=== PATIENT | male | born 1965 | race Caucasian/White ===

== ENCOUNTER 2017-11-21 12:36 | Inpatient (IN) | payer MEDICAID ==
--- NOTE | 2017-11-21 14:02 | GHP ---
[f rep st] HISTORY AND PHYSICAL Amended report DATE OF ADMISSION: 11/21/2017 CHIEF COMPLAINT: Exposed bone, right 2nd toe. HISTORY OF PRESENT ILLNESS: This is a 52-year-old male with history of type 1 diabetes. He presents today with a right 2nd toe wound that has been ongoing for 2 weeks now. States that he has been applying Neosporin daily to it. Reports that initially he had nicked his toe. States that there has been no pain with the wound. No fevers, chills, nausea or vomiting. States that he has previously had a 2nd toe amputation on his left foot. Towards the end of assessment and exam, patient started feeling "off" and not feeling well. PAST MEDICAL HISTORY: Includes type 1 diabetes, left 2nd toe, bipolar disorder , GERD, essential tremor, chronic kidney disease. MEDICATIONS: Include a multivitamin, levothyroxine, omeprazole, Wellbutrin, simvastatin, Depakote, baby aspirin, Abilify, propranolol, Adderall, iron, and vitamin B. SOCIAL HISTORY: Does not smoke. Last drink was on . Does not drink regularly. Does not use any illicit drugs. Lives at home with girlfriend , a cat and 4 birds, and works in IT. FAMILY HISTORY: The patient does not know anything about his biological mom and only knows that his dad with Parkinson's. REVIEW OF SYSTEMS: A 10-point review of systems was obtained and negative other than HPI above. PHYSICAL EXAM: GENERAL: The patient is overweight, and appears to not be feeling well at the end of the exam. HEENT: Normocephalic no gross hearing deficits mucous membranes moist pupils equal and round Nonicteric sclerae. LUNGS: Good effort, clear to auscultation bilaterally. CARDIAC: S1, S2 auscultated. No murmur or gallops. Slight edema right foot. NEUROLOGIC: Alert and oriented. Good historian. INTEGUMENTARY: Right 2nd toe shows disarticulation. Slight erythema on the metatarsal area extending to the dorsum of his foot. Right 2nd toe was wrapped in Kerlix and erythema location was outlined. IMPRESSION and PLAN: This is a 52-year-old man with history of type 1 diabetes , who arrived to clinic today with right 2nd toe disarticulation. Patient began to feel "off" and not right towards the end of examination. Patient is being admitted to the hospital today for IV antibiotics and planned right 2nd toe amputation tomorrow by Dr. De La Cruz. Risks discussed with the patient which include infection, bleeding, swelling, altered sensation, scar, need for additional procedures, and wound dehiscence. Benefits include feeling better after recovery and wound healing. Will continue to follow patient while inpatient in the hospital. /[id number]/MODL Nadiya acc#, 11/28/17, ramya POWELL
[2017-11-21] MEDS ORDERED: diphenhydrAMINE 25 MG CAP PO PRN (14:03)
[2017-11-21] MEDS ORDERED: ONDANSETRON DISINTEGRATING 4 MG TAB PO PRN (14:04)
[2017-11-21] MEDS ORDERED: ONDANSETRON 4 MG/2 ML VIAL IVP PRN (14:04)
[2017-11-21] MEDS ORDERED: AMPICILLIN/SULBACTAM 3 GM VIAL IV SCH (14:15)
[2017-11-21] MEDS ORDERED: D50W 25 GM/50 ML VIAL IVP PRN (16:52)
[2017-11-21] MEDS: AMPICILLIN/SULBACTAM 3 GM VIAL IV SCH ×2 (16:55→22:34)
[2017-11-21] MEDS ORDERED: INSULIN LISPRO 100 UNIT/ML SC SCH ×2 (18:15→18:30)
[2017-11-21] MEDS: [UNRECOGNIZED DRUG - OTHER] SC SCH (19:48)
[2017-11-21] MEDS: INSULIN HUMALOG SC SCH (19:48)
[2017-11-21] MEDS: DIVALPROEX ER 500 MG TAB PO SCH (20:13)
[2017-11-21] MEDS: ATORVASTATIN CALCIUM 10 MG TAB PO SCH (20:13)
[2017-11-21] MEDS: buPROPion SR 150 MG TAB PO SCH (20:13)
[2017-11-21] MEDS: INSULIN GLARGINE 100 UNITS/ML UNIT SC SCH (20:14)
[2017-11-21] MEDS ORDERED: INSULIN DETEMIR 60 UNIT SQ SCH (21:00)
[2017-11-22] MEDS: AMPICILLIN/SULBACTAM 3 GM VIAL IV SCH ×4 (04:24→22:16)
[2017-11-22 05:15] LABS: PLATELET COUNT 228 10^3/uL (150-400)
--- NOTE | 2017-11-22 06:25 | PDANEPAE ---
ANE Past Medical History - Cardiovascular History Hx Hypertension: Yes Hx Arrhythmias: No Hx Chest Pain: No Hx Coronary Artery / Peripheral Vascular Disease: No Hx CHF / Valvular Disease: No Hx Palpitations: No Cardiovascular History Comment: BORDERLINE HTN- PCP MONITORS IT - Pulmonary History Hx COPD: No Hx Asthma/Reactive Airway Disease: No Hx Recent Upper Respiratory Infection: No Hx Oxygen in Use at Home: No Hx Sleep Apnea: No Pulmonary History Comment: RYANN TRIGGERS - Neurologic History Hx Cerebrovascular Accident: No Hx Seizures: No Hx Dementia: No Neurologic History Comment: peripheral neuropathy - Endocrine History Hx Diabetes: Yes Hypothyroid: Yes Hyperthyroid: No Obesity: mild Endocrine History Comment: TYPE 1 x 35 years - Renal History Hx Renal Disorders: Yes Renal History Comment: INCREASE IN PROTEIN POSSIBLY TO ABX - Liver History Hx Hepatic Disorders: No - Neurological & Psychiatric Hx Hx Neurological and Psychiatric Disorders: Yes Neurological / Psychiatric History Comment: DEPRESSION. BIPOLAR. ANXIETY OCC - Cancer History Hx Cancer: No - Congenital Disorder History Hx Congenital Disorders: No - GI History GERD: severe Hx Gastrointestinal Disorders: Yes Gastrointestinal History Comment: REFLUX - Other Health History Other Health History: NONE - Chronic Pain History Chronic Pain: No - Surgical History Prior Surgeries: LEFT FOOT I&D WITH [facility] 04/17/16. I&D WITH CANDELARIO . APPY 10/2013 ANE Review of Systems Review of Systems: ANE Patient History - Allergies Allergies/Adverse Reactions: No Known Allergies Allergy (Verified 05/31/16 15:11) - Home Medications Home Medications: Aspirin [Aspirin 81mg (*)] 81 mg PO DAILY 09/16/15 [Last Taken 11/21/17] Divalproex ER [Depakote ER 500 MG (*)] 500 mg PO BID 09/16/15 [Last Taken ] Multivitamins [Multivitamin (*)] 1 each PO DAILY 09/16/15 [Last Taken 11/21/17] Simvastatin [Zocor] 20 mg PO HS 09/16/15 [Last Taken 11/20/17] Ferrous Sulfate [Ferrous Sulf 325 MG (*)] 325 mg PO DAILY 05/31/16 [Last Taken 11/21/17] Lisinopril [Zestril 10 mg (*)] 10 mg PO DAILY 05/31/16 [Last Taken 11/21/17] Omeprazole [Prilosec 20 mg] 20 mg PO DAILY 05/31/16 [Last Taken 11/21/17] buPROPion SR [Wellbutrin 150mg SR (*)] 150 mg PO BID 05/31/16 [Last Taken ] Amphet Asp and D/Amphet [Adderall 10 MG (*)] 15 mg PO BID@09,13 11/21/17 [Last Taken 11/21/17 09:00] Insulin Detemir [Levemir] 60 unit SQ BID 11/21/17 [Last Taken 11/21/17] Insulin Lispro [Humalog Kwikpen U-100] 0 - 20 unit SQ TIDMEAL 11/21/17 [Last Taken 11/21/17 14 UNITS] Levothyroxine [Synthroid 25 mcg (*)] 25 mcg PO DAILY06 11/21/17 [Last Taken 12/05] Propranolol HCl [Inderal 10mg (*)] 10 mg PO DAILY 11/21/17 [Last Taken 11/21/17] - Smoking Hx Smoking Status: Never smoked - Family Anes Hx Family Hx Anesthesia Complications: ADOPTED- UNKNOWN ANE Labs/Vital Signs - Labs Result Diagrams: 11/24/17 13:00 11/24/17 13:00 ANE Physical Exam - Airway Neck exam: FROM Mouth exam: normal dental/mouth exam - Pulmonary Pulmonary: clear to auscultation - Cardiovascular Cardiovascular: regular rate and rhythym - ASA Status ASA Status: III ANE Anesthesia Plan Anesthesia Plan: GA with mask, MAC (IVGA/MAC procedure/risks/benefits discussed. )
[2017-11-22] MEDS ORDERED: BUPIVACAINE 0.5% 30 ML SDV ONE (07:00)
[2017-11-22] MEDS ORDERED: MIDAZOLAM 2 MG/2 ML VIAL IVP ONE (07:06)
--- NOTE | 2017-11-22 07:07 | PDHPUP ---
History & Physical Update H&P update statement: This history and physical update is based on an assessment of the patient which was completed after admission or registration (within 24 hours), but prior to the surgery/procedure. H&P update: H&P reviewed & patient examined, no change in patient's condition since H&P completed
[2017-11-22] MEDS ORDERED: PROPOFOL 200 MG/20 ML VIAL ONE ×2 (07:13→07:48)
[2017-11-22] MEDS ORDERED: fentaNYL 100 MCG/2 ML INJ ONE (07:13)
[2017-11-22] MEDS ORDERED: LIDOCAINE 1% 300 MG/30 ML SDV ONE (07:21)
[2017-11-22] MEDS ORDERED: RANITIDINE 50 MG/2 ML VIAL ONE (07:29)
[2017-11-22] MEDS ORDERED: fentaNYL 100 MCG/2 ML INJ IVP PRN (07:57)
[2017-11-22] MEDS ORDERED: NALOXONE HCL 0.4 MG/ML INJ IVP PRN ×2 (07:57→08:11)
[2017-11-22] MEDS ORDERED: BACITRACIN ZINC 14.2 GM OINTTUBE TP ONE (08:08)
--- NOTE | 2017-11-22 08:20 | POSTOPPROG ---
Post Op Note Date of Operation: 11/22/17 Surgeon: Felecia De La Cruz Anesthesiologist: alfredo Anesthesia: IV Sedation Pre-op Diagnosis: osteomylitis 2nd toe r Post-op Diagnosis: same Indication: 52 yo with cellulitus and bone exposed r second toe Procedure: amputate r 2nd toe and met head Findings: eroded bone on phaylnx Inf/Abcess present in the surg proc area at time of surgery?: Yes Depth: Deep Incisional (Fascial) EBL: Minimal Specimen(s): path and micro
--- NOTE | 2017-11-22 09:37 | POSTANESTH ---
Post Anesthetic Evaluation Cardiovascular Status: Similar to Pre-Op Cond Respiratory Status: Normal, Stable Level of Consciousness/Mental Status: Can Participate in Eval Pain Control: Adequate, Prn Tx Ordered Nausea/Vomiting Control: Adequate, Prn Tx Ordered Complications Possibly Related to Anesthesia: None Noted
--- NOTE | 2017-11-22 09:41 | PDANEPAE ---
ANE History of Present Illness amputation of second toe, R foot . ANE Past Medical History - Cardiovascular History Hx Hypertension: Yes Hx Arrhythmias: No Hx Chest Pain: No Hx Coronary Artery / Peripheral Vascular Disease: No Hx CHF / Valvular Disease: No Hx Palpitations: No Cardiovascular History Comment: BORDERLINE HTN- PCP MONITORS IT - Pulmonary History Hx COPD: No Hx Asthma/Reactive Airway Disease: No Hx Recent Upper Respiratory Infection: No Hx Oxygen in Use at Home: No Hx Sleep Apnea: No Sleep Apnea Screening Result - Last Documented: Negative Pulmonary History Comment: RYANN TRIGGERS - Neurologic History Hx Cerebrovascular Accident: No Hx Seizures: No Hx Dementia: No Neurologic History Comment: peripheral neuropathy - Endocrine History Hx Diabetes: Yes Hypothyroid: No Hyperthyroid: No Obesity: mild Endocrine History Comment: TYPE 1 - Renal History Hx Renal Disorders: Yes Renal History Comment: INCREASE IN PROTEIN POSSIBLY TO ABX - Liver History Hx Hepatic Disorders: No - Neurological & Psychiatric Hx Hx Neurological and Psychiatric Disorders: Yes Neurological / Psychiatric History Comment: DEPRESSION. BIPOLAR. ANXIETY OCC - Cancer History Hx Cancer: No - Congenital Disorder History Hx Congenital Disorders: No - GI History GERD: severe Hx Gastrointestinal Disorders: Yes Gastrointestinal History Comment: REFLUX - Other Health History Other Health History: NONE - Chronic Pain History Chronic Pain: No - Surgical History Prior Surgeries: LEFT FOOT I&D WITH [facility] 04/17/16. I&D WITH [facility]DEL[facility]IO . APPY 10/2013 ANE Review of Systems Review of Systems: - Exercise capacity METS (RN): 4 METS ANE Patient History - Allergies Allergies/Adverse Reactions: No Known Allergies Allergy (Verified 05/31/16 15:11) - Home Medications Home Medications: Aspirin [Aspirin 81mg (*)] 81 mg PO DAILY 09/16/15 [Last Taken 11/21/17] Divalproex ER [Depakote ER 500 MG (*)] 500 mg PO BID 09/16/15 [Last Taken ] Multivitamins [Multivitamin (*)] 1 each PO DAILY 09/16/15 [Last Taken 11/21/17] Simvastatin [Zocor] 20 mg PO HS 09/16/15 [Last Taken 11/20/17] Ferrous Sulfate [Ferrous Sulf 325 MG (*)] 325 mg PO DAILY 05/31/16 [Last Taken 11/21/17] Lisinopril [Zestril 10 mg (*)] 10 mg PO DAILY 05/31/16 [Last Taken 11/21/17] Omeprazole [Prilosec 20 mg] 20 mg PO DAILY 05/31/16 [Last Taken 11/21/17] buPROPion SR [Wellbutrin 150mg SR (*)] 150 mg PO BID 05/31/16 [Last Taken ] Amphet Asp and D/Amphet [Adderall 10 MG (*)] 15 mg PO BID@09,13 11/21/17 [Last Taken 11/21/17 09:00] Insulin Detemir [Levemir] 60 unit SQ BID 11/21/17 [Last Taken 11/21/17] Insulin Lispro [Humalog] 0 - 20 unit SQ TIDMEAL 11/21/17 [Last Taken 11/21/17 14 UNITS] Levothyroxine [Synthroid 25 mcg (*)] 25 mcg PO DAILY06 11/21/17 [Last Taken 12/05] Propranolol HCl [Inderal 10mg (*)] 10 mg PO DAILY 11/21/17 [Last Taken 11/21/17] - NPO status NPO Since - Liquids (Date): 11/21/17 NPO Since - Liquids (Time): 23:55 NPO Since - Solids (Date): 11/21/17 NPO Since - Solids (Time): 23:55 - Smoking Hx Smoking Status: Never smoked - Family Anes Hx Family Hx Anesthesia Complications: ADOPTED- UNKNOWN ANE Labs/Vital Signs - Labs Result Diagrams: 11/22/17 04:21 11/22/17 04:21 - Vital Signs Blood Pressure: 110/73 Heart Rate: 84 Respiratory Rate: 12 O2 Sat (%): 97 Height: 190.5 cm Weight: 103.238 kg ANE Physical Exam - Airway Neck exam: FROM Mallampati Score: Class 1 Mouth exam: normal dental/mouth exam - Pulmonary Pulmonary: clear to auscultation - Cardiovascular Cardiovascular: regular rate and rhythym - ASA Status ASA Status: III ANE Anesthesia Plan Anesthesia Plan: GA with mask
[2017-11-22] MEDS: ADDERALL 10 MG TAB PO SCH ×2 (10:00→14:28)
[2017-11-22] MEDS: DIVALPROEX ER 500 MG TAB PO SCH ×2 (10:00→20:16)
[2017-11-22] MEDS: FERROUS SULFATE 325 MG TAB PO SCH (10:00)
[2017-11-22] MEDS: PROPRANOLOL HCL 10 MG TAB PO SCH (10:01)
[2017-11-22] MEDS: LISINOPRIL 10 MG TAB PO SCH (10:01)
[2017-11-22] MEDS: ARIPiprazole 5 MG TAB PO SCH (10:01)
[2017-11-22] MEDS: ASPIRIN 81 MG CHEWABLE TAB PO SCH (10:01)
[2017-11-22] MEDS: PANTOPRAZOLE SODIUM 40 MG TAB PO SCH (10:02)
[2017-11-22] MEDS: buPROPion SR 150 MG TAB PO SCH ×2 (10:02→20:16)
[2017-11-22] MEDS: LEVOTHYROXINE 25 MCG TAB PO SCH (10:06)
[2017-11-22] MEDS: INSULIN GLARGINE 100 UNITS/ML UNIT SC SCH ×2 (10:07→20:16)
[2017-11-22] MEDS: INSULIN HUMALOG SC SCH ×3 (10:08→18:21)
[2017-11-22] MEDS: [UNRECOGNIZED DRUG - OTHER] SC SCH ×3 (10:08→18:21)
--- NOTE | 2017-11-22 11:07 | ASMTCMCOM ---
CM Note CM Note Notes: Pt here for surgical amputation of toe, pt is a type 1 diabetic. He was at MD's office having his toe evaluated when he started to feel "off", he was then transferred to the hospital. Pt lives with girlfriend and several pets, PT to [facility] w/f. DC Plan: TBD Date Signed: 11/22/2017 11:07 AM Electronically Signed By:Tere Carreon RN
[2017-11-22] MEDS ORDERED: ALTEPLASE 2 MG VIAL IVP PRN (13:50)
--- NOTE | 2017-11-22 13:52 | PCMIDPN ---
Assessment/Plan: R 2nd toe/met OM s/p revision. gram stain with GPC chains. Underlying DM, high risk therefore would give IV therapy until bone path back. Hopeful for ceftriaxone 2gm IV daily. Leave on Unasyn for now, symptoms improved overnight with antibiotics alone. Creatinine normal therefore Unasyn dosed 3 g IV Q 6 appropriate. Will follow cultures and path Reviewed need for PICC line, PICC line ordered. Plan IV antibiotics in the infusion center. Care coordinated with Dr. Felecia De La Cruz and case management. Subjective: Patient without specific complaints postoperative Objective: Vital Signs Temp Pulse Resp BP Pulse Ox 36.6 C 78 16 129/85 H 96 11/22/17 12:46 11/22/17 12:46 11/22/17 12:46 11/22/17 12:46 11/22/17 12:46 Microbiology 11/22/17 Unknown Gram Stain - Final Toe - Tissue Laboratory Results 11/22/17 04:21 11/22/17 04:21 11/21/17 11/22/17 11/23/17 05:59 05:59 05:59 Intake Total 450 200 Output Total 2500 710 Balance -2050 -510 - Physical Exam General Appearance: alert, no apparent distress Respiratory: No accessory muscle use Extremities: other (Right foot 2nd digit amputation no residual erythema on the dorsum of the foot) Skin: No rash Neuro/Psych: alert, normal mood/affect, oriented x 3 - Time Spent With Patient Time Spent with Patient: greater than 25 minutes Time Spent with Patient: Greater than 25 minutes spent on this patients care, greater than 50% of time spent counseling, educating, and coordinating care regarding the above mentioned plan. ICD10 Worksheet Patient Problems: Problems Problem Status Onset Acute kidney injury Acute Left leg cellulitis Acute MRSA (methicillin resistant Staphylococcus aureus) Acute 12/17/15 Septic shock Acute
--- NOTE | 2017-11-22 14:51 | ASMTCMCOM ---
CM Note CM Note Notes: Spoke with pt re; home infusion vs outpt infusion. Pt has no other needs, he was cleared by PT for home and prefers to come to hospital daily for IV infusions. Anticipate pt will dc home w/support of girlfriend when medicallly stable, CM available for any changes. DC Plan: Independent Date Signed: 11/22/2017 02:50 PM Electronically Signed By:Tere Carreon RN
[2017-11-22] MEDS ORDERED: PNEUMOCOCCAL 0.5ML VACCINE VIAL IM ONE (18:12)
[2017-11-22] MEDS: ATORVASTATIN CALCIUM 10 MG TAB PO SCH (20:16)
[2017-11-22] MEDS: HYDROCODONE/APAP 5/325 TAB PO PRN (20:23)
[2017-11-23] MEDS: HYDROCODONE/APAP 5/325 TAB PO PRN (01:17)
[2017-11-23] MEDS: AMPICILLIN/SULBACTAM 3 GM VIAL IV SCH ×4 (04:34→22:08)
[2017-11-23] MEDS: LEVOTHYROXINE 25 MCG TAB PO SCH (05:44)
[2017-11-23] MEDS: INSULIN HUMALOG SC SCH ×3 (08:46→18:05)
[2017-11-23] MEDS: [UNRECOGNIZED DRUG - OTHER] SC SCH ×3 (08:46→18:05)
[2017-11-23] MEDS: INSULIN GLARGINE 100 UNITS/ML UNIT SC SCH ×2 (08:47→21:11)
[2017-11-23] MEDS: ADDERALL 10 MG TAB PO SCH ×2 (08:47→15:00)
[2017-11-23] MEDS: PROPRANOLOL HCL 10 MG TAB PO SCH (08:48)
[2017-11-23] MEDS: LISINOPRIL 10 MG TAB PO SCH (08:49)
[2017-11-23] MEDS: DIVALPROEX ER 500 MG TAB PO SCH ×2 (08:49→20:06)
[2017-11-23] MEDS: FERROUS SULFATE 325 MG TAB PO SCH (08:49)
[2017-11-23] MEDS: ASPIRIN 81 MG CHEWABLE TAB PO SCH (08:50)
[2017-11-23] MEDS: buPROPion SR 150 MG TAB PO SCH ×2 (08:53→20:06)
[2017-11-23] MEDS: ARIPiprazole 5 MG TAB PO SCH (08:53)
[2017-11-23] MEDS: PANTOPRAZOLE SODIUM 40 MG TAB PO SCH (08:53)
--- NOTE | 2017-11-23 09:15 | PDMN ---
Medical Necessity Medical necessity: change to IP; los>2mn for osteomyelitis, s/p R 2nd toe and met head amputation; requires continued IV abx until bone path available, ID consult, PICC placement and coordination of OP IV abx; comorbid DM type 1, bipolar, GERD, CKD, essential tremor; per order and progress note 11/22/17
--- NOTE | 2017-11-23 09:58 | PCMIDPN ---
Assessment/Plan: 1. Right 2nd toe osteomyelitis with surrounding cellulitis of the foot status post amputation of the digit without complications: I did call the microbiology lab today. They will know more about what is growing from his foot later this afternoon. So far, I was told that he has Staph species, and strep species. Explained to the patient that I would prefer that we wait another day prior to changing his antibiotics, to ensure that he is on the right one. He expressed understanding. Likely home tomorrow. Surgical Pathology still pending. Patient understands that if his margins are positive, he will need likely further debridement and extension of antibiotic duration. Fine to insert PICC line today. Subjective: No complaints. No diarrhea. Objective: Vital Signs Unasyn 3 g IV q.6 hours day 2 Afebrile Temp Pulse Resp BP Pulse Ox 37.1 C 82 16 109/69 97 11/23/17 07:26 11/23/17 08:48 11/23/17 07:26 11/23/17 08:49 11/23/17 07:26 Microbiology 11/22/17 Unknown Gram Stain - Final Toe - Tissue Laboratory Results 11/22/17 04:21 11/22/17 04:21 11/22/17 11/23/17 11/24/17 05:59 05:59 05:59 Intake Total 450 712 Output Total 2500 2085 Balance -2049 C-Reactive Protein 18.9 mg/L (<10.0) H 11/22/17 04:21 November 22 toe: 3+ PMNs, 3+ GPCs in chains Culture pending, although microbiology lab reports a Staph species, and streptococcal species. - Physical Exam General Appearance: alert, no apparent distress EENT: pharynx normal, No scleral icterus, No thrush Respiratory: lungs clear Cardiac/Chest: regular rate, rhythm Extremities: other (Right ft: 2nd toe status post amputation. The base is clean. The surrounding area of cellulitis that was marked by a pen has resolved.) Abdomen: non-tender, soft ICD10 Worksheet Patient Problems: Problems Problem Status Onset Acute kidney injury Acute Left leg cellulitis Acute MRSA (methicillin resistant Staphylococcus aureus) Acute 12/17/15 Septic shock Acute
--- NOTE | 2017-11-23 17:29 | SOAPPROG ---
SOAP Progress Note Assessment/Plan: Assessment/Plan: 52-year-old man with type 1 diabetes POD#1 status post amputation of right 2nd toe for osteomyelitis Pain controlled Change outer dressing as needed Heel touch only right lower extremity or offloading boot when ambulating Culture and pathology results pending Appreciate ID management of IV antibiotics PICC placement today Dispo: Likely inpatient 1-2 more days until culture results finalized. Per ID , will need at least 2 weeks of IV antibiotics. Case discussed with Dr. Felecia De La Cruz S: Feeling well this morning, no complaints of pain. He is walking using it offloading boot O: Lying in bed, comfortable, no acute distress No increased work of breathing No peripheral edema Right 2nd toe amputation site clean, dry and intact without evidence of infection. Sutures intact. Dressing changed. Objective: Vital Signs Temp Pulse Resp BP Pulse Ox 36.8 C 79 14 101/64 96 11/23/17 15:27 11/23/17 15:27 11/23/17 15:27 11/23/17 15:27 11/23/17 15:27 Microbiology 11/22/17 Unknown Gram Stain - Final Toe - Tissue Laboratory Results 11/22/17 04:21 11/22/17 04:21 11/22/17 11/23/17 11/24/17 05:59 05:59 05:59 Intake Total 450 712 400 Output Total 2069 1599 460 [facility] -2050 -1373 -75 ICD10 Worksheet Patient Problems: Problems Problem Status Onset Acute kidney injury Acute Left leg cellulitis Acute MRSA (methicillin resistant Staphylococcus aureus) Acute 12/17/15 Septic shock Acute
[2017-11-23] MEDS: ACETAMINOPHEN 325 MG TAB PO PRN (20:06)
[2017-11-23] MEDS: ATORVASTATIN CALCIUM 10 MG TAB PO SCH (20:06)
[2017-11-23] MEDS ORDERED: INSULIN LISPRO 100 UNIT/ML SC PRN (20:51)
[2017-11-24] MEDS: AMPICILLIN/SULBACTAM 3 GM VIAL IV SCH ×2 (04:31→09:34)
[2017-11-24] MEDS: LEVOTHYROXINE 25 MCG TAB PO SCH (05:03)
[2017-11-24] MEDS: INSULIN LISPRO 100 UNIT/ML SC SCH ×3 (08:37→18:07)
[2017-11-24] MEDS: ADDERALL 10 MG TAB PO SCH ×2 (09:16→13:00)
[2017-11-24] MEDS: ARIPiprazole 5 MG TAB PO SCH (09:17)
[2017-11-24] MEDS: ASPIRIN 81 MG CHEWABLE TAB PO SCH (09:17)
[2017-11-24] MEDS: DIVALPROEX ER 500 MG TAB PO SCH ×2 (09:17→21:46)
[2017-11-24] MEDS: PROPRANOLOL HCL 10 MG TAB PO SCH (09:17)
[2017-11-24] MEDS: LISINOPRIL 10 MG TAB PO SCH (09:17)
[2017-11-24] MEDS: buPROPion SR 150 MG TAB PO SCH ×2 (09:18→21:46)
[2017-11-24] MEDS: FERROUS SULFATE 325 MG TAB PO SCH (09:18)
[2017-11-24] MEDS: INSULIN GLARGINE 100 UNITS/ML UNIT SC SCH ×2 (09:18→21:46)
[2017-11-24] MEDS: PANTOPRAZOLE SODIUM 40 MG TAB PO SCH (09:18)
[2017-11-24 13:12] LABS: PLATELET COUNT 226 10^3/uL (150-400)
[2017-11-24 14:26] LABS: CREATINE KINASE 27 IU/L (0-224)
[2017-11-24] MEDS: ACETAMINOPHEN 325 MG TAB PO PRN (15:16)
--- NOTE | 2017-11-24 15:43 | SOAPPROG ---
SOAP Progress Note Assessment/Plan: Assessment: 52 yo with osteomylitis of 2nd toe s/p amputation of toe and met head Micro with MRSA and Strep - continue ABX Path pending Home when abx determined May do limited ambulation S: Feeling well. BS 60-260 O: Incision cdi. No erythema Sitting up in bed, appears well Plan: 11/24/17 15:42 Objective: Vital Signs Temp Pulse Resp BP Pulse Ox 37.3 C 87 16 132/84 H 92 11/24/17 15:11 11/24/17 15:11 11/24/17 15:11 11/24/17 15:11 11/24/17 15:11 Microbiology 11/22/17 Unknown Gram Stain - Final Toe - Tissue Laboratory Results 11/24/17 13:00 11/24/17 13:00 11/23/17 11/24/17 11/25/17 05:59 05:59 05:59 Intake Total 712 1166 Output Total 7576 1125 600 Balance -1373 41 -600 ICD10 Worksheet Patient Problems: Problems Problem Status Onset Acute kidney injury Acute Left leg cellulitis Acute MRSA (methicillin resistant Staphylococcus aureus) Acute 12/17/15 Septic shock Acute
[2017-11-24] MEDS: NS IV SCH (16:38)
[2017-11-24] MEDS: DAPTOMYCIN IV SCH (16:38)
[2017-11-24] MEDS: HYDROCODONE/APAP 5/325 TAB PO PRN (17:14)
--- NOTE | 2017-11-24 18:34 | PCMIDPN ---
Assessment/Plan: Assessment/Plan: 1. Right 2nd toe osteomyelitis with cellulitis: s/p amputation - brief op note reviewed: 2nd toe plus metatarsal head amputated -Cultures growing MRSA, GBS - given clinical features, high risk for extension of infection, DM etc, will change atbx to Daptomycin (8mg/kg daily) and d/c unasyn -check stat cbc, cmp , cpk prior to dapto dosing to ensure no dosage adjustments needed - will d/c statin while on dapto. -clinical exam findings reviewed with Dr. De La Cruz. Will reassess in am -care coordianted with RN and surgical team -culture results reviewed with patient adn plan of care reviewed MEds unasyn---see above for changes. Subjective: afebrile. denies sob, abd pain or diarrhea. less overal pain in foot. discoloratoin of foot patient feels is better. Objective: Vital Signs Temp Pulse Resp BP Pulse Ox 37.3 C 87 16 132/84 H 92 11/24/17 15:11 11/24/17 15:11 11/24/17 15:11 11/24/17 15:11 11/24/17 15:11 Microbiology 11/22/17 Unknown Gram Stain - Final Toe - Tissue Laboratory Results 11/24/17 13:00 11/24/17 13:00 11/23/17 11/24/17 11/25/17 05:59 05:59 05:59 Intake Total 712 1166 Output Total 2085 1125 600 Balance -1373 41 -600 C-Reactive Protein 18.9 mg/L (<10.0) H 11/22/17 04:21 - Physical Exam General Appearance: alert, no apparent distress Respiratory: lungs clear Cardiac/Chest: regular rate, rhythm Abdomen: normal bowel sounds, non-tender, soft, No distended Skin: erythema (brawny discoloration of dorsum of foot. sutures noted. minimal amount of mixed bloody purulent fluid noted at distal wound and was able to express small amount out. tender to palpate.) - Time Spent With Patient Time Spent with Patient: greater than 35 minutes Time Spent with Patient: Greater than 35 minutes spent on this patients care, greater than 50% of time spent counseling, educating, and coordinating care regarding the above mentioned plan. ICD10 Worksheet Patient Problems: Problems Problem Status Onset Acute kidney injury Acute Left leg cellulitis Acute MRSA (methicillin resistant Staphylococcus aureus) Acute 12/17/15 Septic shock Acute
[2017-11-25] MEDS: LEVOTHYROXINE 25 MCG TAB PO SCH (05:32)
[2017-11-25 08:00] VITALS: BP 115/77
--- NOTE | 2017-11-25 08:01 | SOAPPROG ---
SOAP Progress Note Assessment/Plan: Assessment: 52 yo with osteomylitis of 2nd toe s/p amputation of toe and met head Micro with MRSA and Strep - Daptomycin in outpatient infusion center Path pending May do limited ambulation Elevate when possible Change dressing bid and prn S: Feeling well. O: Incision with slight drainage, improved from yesterday. Erythema on foot resolved Lying in bed, appears well Plan: 11/24/17 15:42 11/25/17 08:00 Objective: Vital Signs Temp Pulse Resp BP Pulse Ox 36.9 C 81 16 115/77 95 11/25/17 07:58 11/25/17 07:58 11/25/17 07:58 11/25/17 07:58 11/25/17 07:58 Microbiology 11/22/17 Unknown Gram Stain - Final Toe - Tissue Laboratory Results 11/24/17 13:00 11/24/17 13:00 11/24/17 11/25/17 11/26/17 05:59 05:59 05:59 Intake Total 1166 Output Total 1125 1250 Balance 41 -1250 ICD10 Worksheet Patient Problems: Problems Problem Status Onset Acute kidney injury Acute Left leg cellulitis Acute MRSA (methicillin resistant Staphylococcus aureus) Acute 12/17/15 Septic shock Acute
[2017-11-25] MEDS: INSULIN LISPRO 100 UNIT/ML SC SCH (08:31)
[2017-11-25] MEDS: ADDERALL 10 MG TAB PO SCH (08:47)
[2017-11-25] MEDS: PANTOPRAZOLE SODIUM 40 MG TAB PO SCH (08:48)
[2017-11-25] MEDS: ARIPiprazole 5 MG TAB PO SCH (08:48)
[2017-11-25] MEDS: DIVALPROEX ER 500 MG TAB PO SCH (08:48)
[2017-11-25] MEDS: buPROPion SR 150 MG TAB PO SCH (08:48)
[2017-11-25] MEDS: LISINOPRIL 10 MG TAB PO SCH (08:48)
[2017-11-25] MEDS: FERROUS SULFATE 325 MG TAB PO SCH (08:49)
[2017-11-25] MEDS: ASPIRIN 81 MG CHEWABLE TAB PO SCH (08:49)
[2017-11-25] MEDS: PROPRANOLOL HCL 10 MG TAB PO SCH (08:49)
[2017-11-25] MEDS: NS IV SCH (08:59)
[2017-11-25] MEDS: DAPTOMYCIN IV SCH (08:59)
[2017-11-25] MEDS: INSULIN GLARGINE 100 UNITS/ML UNIT SC SCH (08:59)
--- NOTE | 2017-11-25 10:09 | ASDISCHSUM ---
Discharge Information Plan Status:IV ABX/Infusion Medically Cleared to Leave:11/25/2017 Discharge Date:11/25/2017 CM D/C Disposition:Home, Routine, Self-Care ADT D/C Disposition:Home, Routine, Self-Care Projected Discharge Date:11/25/2017 Transportation at D/C:Friend Discharge Delay Reason: Follow-Up Date:11/25/2017 Discharge Slot: Final Diagnosis: Placement Information Patient Contact Information Contact Name:SANCHEZ Relationship:Other Address: Work Phone: City: [facility] Phone: State/[place] Code: Email: Financial Information Financial Class:Medicaid Primary Plan Desc:[employer] Primary Plan Number:[id number] Secondary Plan Desc: Secondary Plan Number: Assessment Information LACE LACE Length of stay for Answers: 4-6 days current admission Acuity / Level of Answers: Yes Care: Did the patient have an inpatient admission? Comorbidities - select Answers: Diabetes (uncontrolled or all that apply controlled) Mild liver or renal disease # of Emergency department Answers: 0 visits in the last 6 months Social determinants Answers: Mental health diagnosis (anxiety, depression, pers onality disorders, etc.) Score: 13 Date Signed: 11/25/2017 10:07 AM Electronically Signed By:MARC Castelan [facility] Progress Note CM Tejal NG Note Notes: Pt here for surgical amputation of toe, pt is a type 1 diabetic. He was at MD's office having his toe evaluated when he started to feel "off", he was then transferred to the hospital. Pt lives with girlfriend and several pets, PT to [facility] l[facility] w/fAdalberto TAPIA Plan: TBD Date Signed: 11/22/2017 11:07 AM Electronically Signed By:Tere Carreon RN [facility] CM Progress Note CM Note CM Note Notes: Spoke with pt re; home infusion vs outpt infusion. Pt has no other needs, he was cleared by PT for home and prefers to come to hospital daily for IV infusions. Anticipate pt will dc home w/support of girlfriend when medicallly stable, CM available for any changes. DC Plan: Independent Date Signed: 11/22/2017 02:50 PM Electronically Signed By:Tere Carreon RN Intervention Information
--- NOTE | 2017-11-25 12:11 | PCMIDPN ---
Assessment/Plan: Assessment/Plan: 1. Right 2nd toe osteomyelitis with cellulitis: s/p amputation - brief op note reviewed: 2nd toe plus metatarsal head amputated -Cultures growing MRSA, GBS - dapto RAFIQ <=1 - path pending - given clinical features, high risk for extension of infection, DM etc, will change atbx to Daptomycin (8mg/kg daily) -laBs from yesterday reviewed. stable creatinine at 1.0. lft wnl, cpk nl. - HOld statin while on dapto. I d/c'd it yesterday from his OCT but i reviewed his discharge and it was still listed. So I called the patient at home to review that he is not to take his stain medication while on Daptomycin IV therapy. He expressed understanding and stated he would not take his Statin med. -clinical exam findings reviewed with Dr. De La Cruz yesterday. concerned there was some pus that i could express out from distal portion of wound. may need to have that opened a bit to to ensure no abscess. -care coordianted with RN -will do interagency to set up IV atbx at 3E. tentative plan for 2 weeks pending path. if path margins positive will need 6 weeks. -care coordinated with infusion team, and the patient today. MEds dapto 824mg daily unasyn---see above for changes. Subjective: afebrile. pt was discharged before i could see him today. did discuss care of patient at length with Dr. De La Cruz with a tentative plan for possible d/c today. Objective: Vital Signs Temp Pulse Resp BP Pulse Ox 36.9 C 88 16 115/77 95 11/25/17 07:58 11/25/17 08:49 11/25/17 07:58 11/25/17 08:49 11/25/17 07:58 Microbiology 11/22/17 Unknown Gram Stain - Final Toe - Tissue Laboratory Results 11/24/17 13:00 11/24/17 13:00 11/24/17 11/25/17 11/26/17 05:59 05:59 05:59 Intake Total 1166 Output Total 1125 1250 Balance 41 -1250 C-Reactive Protein 18.9 mg/L (<10.0) H 11/22/17 04:21 - Time Spent With Patient Time Spent with Patient: greater than 35 minutes Time Spent with Patient: Greater than 35 minutes spent on this patients care, greater than 50% of time spent counseling, educating, and coordinating care regarding the above mentioned plan. ICD10 Worksheet Patient Problems: Problems Problem Status Onset MRSA (methicillin resistant Staphylococcus aureus) Acute 12/17/15 Septic shock Acute Acute kidney injury Acute Left leg cellulitis Acute
--- NOTE | 2017-12-02 11:39 | GOP ---
[f rep st] OPERATIVE REPORT DATE OF OPERATION: 11/22/2017 SURGEON: Felecia De La Cruz MD ANESTHESIA: IV sedation. ANESTHESIOLOGIST: Dallin Cary MD PREOPERATIVE DIAGNOSIS: Osteomyelitis 2nd toe on the right side. POSTOPERATIVE DIAGNOSIS: Osteomyelitis 2nd toe on the right side. PROCEDURE PERFORMED: Amputation right 2nd toe and FINDINGS: DESCRIPTION OF PROCEDURE: Patient was supine on the table, and IV sedation was performed. His foot was prepped and draped in usual sterile fashion. I infiltrated all sites with 0.5% Marcaine prior to making incisions. I made an incision around the toe. I deepened this down to the subcutaneous spac e. I amputated the distal phalanx. I submitted this to Path for micro. Continued my dissection and submitted a piece of bone for microbiology. I then elevated the bone off the metatarsal head with a n elevator and used the microsagittal saw to transect the distal metatarsal head. This was inked and submitted to Pathology for permanent. Hemostasis was achieved within the wound. The tendon was tri mmed. The fascia over the bone was closed with 2-0 Vicryl, skin closed with 2-0 nylon. Sterile dres sing applied. He was awakened in the operating room, transferred to PACU in stable condition. /[id number]/MODL
== END 2017-11-25 11:14 | disposition home or self-care (01) | DRG 314 ==
LOC: OBSVTOIN 13:34 → F3E 13:34
PROVIDERS: ADMIT Surgery; ATTEND Surgery
PROC: 3E03329 Introduction of Other Anti-infective into Peripheral Vein, Percutaneous Approach (ICD-10-PCS; 2017-11-21)
PROC: 0Y6R0Z1 Detachment at Right 2nd Toe, High, Open Approach (ICD-10-PCS; principal; 2017-11-22 07:15)
PROC: 0QBN0ZX Excision of Right Metatarsal, Open Approach, Diagnostic (ICD-10-PCS; 2017-11-23)
PROC: 02HV33Z Insertion of Infusion Device into Superior Vena Cava, Percutaneous Approach (ICD-10-PCS; 2017-11-23)
DX: M86.671 Other chronic osteomyelitis, right ankle and foot (principal); E10.42 Type 1 diabetes mellitus with diabetic polyneuropathy; E10.22 Type 1 diabetes mellitus with diabetic chronic kidney disease; L03.115 Cellulitis of right lower limb; G62.9 Polyneuropathy, unspecified; B95.62 Methicillin resistant Staphylococcus aureus infection as the cause of diseases classified elsewhere; B95.1 Streptococcus, group B, as the cause of diseases classified elsewhere; F31.9 Bipolar disorder, unspecified; N18.9 Chronic kidney disease, unspecified; K21.9 Gastro-esophageal reflux disease without esophagitis; I12.9 Hypertensive chronic kidney disease with stage 1 through stage 4 chronic kidney disease, or unspecified chronic kidney disease; G25.0 Essential tremor; L97.516 Non-pressure chronic ulcer of other part of right foot with bone involvement without evidence of necrosis; E78.5 Hyperlipidemia, unspecified; E66.3 Overweight; Z68.28 Body mass index [BMI] 28.0-28.9, adult; Z86.19 Personal history of other infectious and parasitic diseases; Z89.422 Acquired absence of other left toe(s); Z23 Encounter for immunization
CPT/HCPCS: 97116-GP; 97161-GP; C1751; G0009; G0378; G0379; J0295; J0878; J1815; J2250; J2704; J2780; J3010